=== PATIENT | female | born 1975 | race Caucasian/White ===

== ENCOUNTER 2021-01-26 21:15 | Emergency (ER) | payer OTHER, BC ==
[2021-01-27] MEDS ORDERED: PERCOCET 5/325 T1 EA PO (01:52)
== END 2021-01-27 02:08 | disposition home or self-care (01) ==
LOC: ER1 21:15
DX: R51.9 Headache, unspecified (principal); Z88.8 Allergy status to other drugs, medicaments and biological substances; V49.40XA Driver injured in collision with unspecified motor vehicles in traffic accident, initial encounter; Y92.410 Unspecified street and highway as the place of occurrence of the external cause
CPT/HCPCS: 70450; 71045; 72125; 72128; 72131; 73610; 73630; 96374; 96375; 99285; J1885; J2405